=== PATIENT | female | born 1970 | race Caucasian/White ===

== ENCOUNTER → 2017-11-22 | Outpatient (CLI) | payer SELFPAY ==
[~2017-11-22] MED LIST: ALBU90OI6 INH; ATOR20 PO; BENTYL10 MG PO; BIRTH CONTROL; CLEM1.34 PO; CODBUTACEC PO; CYCL10 PO; DIPH50 PO; DULO60; DULO60 PO; FAMO10; FAMO20 PO; FISH1000 PO; HYDR1TAB94 PO; LISI20 PO; Lisinopril2.5 MG; METF500 PO; METO100ER; METO100ER PO; MULVITMIND PO; NAPR220 PO; Norco 5-325 Ta1 EACH PO; TRAM50 PO; Zofran Odt4 MG SL
== END | disposition home or self-care (01) ==
LOC: LAB SHORT 10:02 → LAB 10:02
PROVIDERS: Obstetrics & Gynecology
DX: Z01.419 Encounter for gynecological examination (general) (routine) without abnormal findings (principal)
CPT/HCPCS: 87624; G0123

== ENCOUNTER → 2018-12-13 | Outpatient (CLI) | payer OTHER | END | disposition home or self-care (01) | LOC: LAB SHORT 10:45 → LAB EV 10:45 | DX: N76.0 Acute vaginitis (principal) | CPT/HCPCS: 87070; 87205 ==

== ENCOUNTER → 2018-12-16 | Outpatient (CLI) | payer OTHER | END | disposition home or self-care (01) | LOC: LAB SHORT 08:00 → LAB EV 08:00 | DX: N39.0 Urinary tract infection, site not specified (principal) | CPT/HCPCS: 87086 ==